=== PATIENT | female | born 1975 | race Caucasian/White ===

== ENCOUNTER 2020-12-04 05:16 | Inpatient (IN) | payer OTHER ==
[~2020-12-04] VITALS: Ht 149.9 cm; Wt 59.0 kg
[2020-12-06] MEDS ORDERED: MEDROXYPROGESTE10 MG (16:26)
[2020-12-07] MEDS ORDERED: HEMATRON PO (08:07)
[2020-12-07] MEDS ORDERED: SPRINTEC 28 DA1 EACH PO (08:07)
== END 2020-12-07 14:26 | disposition home or self-care (01) | DRG 812 ==
LOC: ER 05:16 → OB/GYN 13:50
PROVIDERS: ADMIT Obstetrics & Gynecology; ATTEND Obstetrics & Gynecology
PROC: 30233N1 Transfusion of Nonautologous Red Blood Cells into Peripheral Vein, Percutaneous Approach (ICD-10-PCS; principal; 2020-12-04)
PROC: BU4CZZZ Ultrasonography of Uterus and Ovaries (ICD-10-PCS; 2020-12-04)
DX: D64.9 Anemia, unspecified (principal); N93.9 Abnormal uterine and vaginal bleeding, unspecified; D25.9 Leiomyoma of uterus, unspecified

== ENCOUNTER 2021-01-04 19:06 | Emergency (ER) | payer OTHER ==
[~2021-01-04] VITALS: Ht 121.9 cm; Wt 59.0 kg
[~2021-01-04 19:06] MED LIST: HEMATRON PO; MEDROXYPROGESTE10 MG; SPRINTEC 28 DA1 EACH PO
== END 2021-01-05 00:17 | disposition home or self-care (01) ==
LOC: ER 19:06
DX: N93.8 Other specified abnormal uterine and vaginal bleeding (principal)

== ENCOUNTER 2021-01-09 00:59 | Emergency (ER) | payer OTHER ==
[~2021-01-09] VITALS: Ht 149.9 cm; Wt 59.0 kg
== END 2021-01-09 06:55 | disposition home or self-care (01) ==
LOC: ER 00:59
DX: N93.8 Other specified abnormal uterine and vaginal bleeding (principal)

== ENCOUNTER 2021-02-06 08:15 | Inpatient (IN) | payer OTHER ==
[~2021-02-06] VITALS: Ht 149.9 cm; Wt 57.6 kg
[2021-02-06] MEDS ORDERED: IRON236 MG PO (10:00)
[2021-02-14] MEDS ORDERED: NAPR500T14 PO (08:35)
[2021-02-14] MEDS ORDERED: Tylenol #3 PO (08:35)
== END 2021-02-14 11:12 | disposition home or self-care (01) | DRG 742 ==
LOC: O/R 02-13 06:10 → SURH 02-13 08:15 → OB/GYN 02-13 10:13 → SURH 02-13 14:00 → OB/GYN 02-14 11:12
PROVIDERS: ADMIT Obstetrics & Gynecology; ATTEND Obstetrics & Gynecology
PROC: 0UB70ZZ Excision of Bilateral Fallopian Tubes, Open Approach (ICD-10-PCS; 2021-02-13)
PROC: 0UB20ZZ Excision of Bilateral Ovaries, Open Approach (ICD-10-PCS; 2021-02-13)
PROC: 0UQF0ZZ Repair Cul-de-sac, Open Approach (ICD-10-PCS; 2021-02-13)
PROC: 0USG0ZZ Reposition Vagina, Open Approach (ICD-10-PCS; 2021-02-13)
PROC: 0UT90ZZ Resection of Uterus, Open Approach (ICD-10-PCS; principal; 2021-02-13 14:00)
DX: N92.0 Excessive and frequent menstruation with regular cycle (principal); D62 Acute posthemorrhagic anemia; N81.11 Cystocele, midline; D25.1 Intramural leiomyoma of uterus; N72 Inflammatory disease of cervix uteri; N83.8 Other noninflammatory disorders of ovary, fallopian tube and broad ligament

== ENCOUNTER 2021-03-15 01:48 | Inpatient (IN) | payer OTHER ==
[~2021-03-15] VITALS: Ht 149.9 cm; Wt 56.2 kg
[~2021-03-15 01:48] MED LIST changes: +IRON236 MG PO; +NAPR500T14 PO; +Tylenol #3 PO
[2021-03-19] MEDS ORDERED: PROTONIX40 MG PO (08:16)
[2021-03-19] MEDS ORDERED: CIPRO500 MG PO (08:16)
[2021-03-19] MEDS ORDERED: ULTRACET PO (08:16)
== END 2021-03-19 10:10 | disposition home or self-care (01) | DRG 343 ==
LOC: ER 01:48 → SEC-K 09:02 → SURG 09:02
PROVIDERS: ADMIT Surgery; ATTEND Surgery
PROC: 0DTJ0ZZ Resection of Appendix, Open Approach (ICD-10-PCS; principal; 2021-03-15)
DX: K35.890 Other acute appendicitis without perforation or gangrene (principal); Z20.822 Contact with and (suspected) exposure to COVID-19

== ENCOUNTER 2021-04-05 09:19 | Emergency (ER) | payer OTHER ==
[~2021-04-05] VITALS: Ht 149.9 cm; Wt 53.5 kg
[~2021-04-05 09:19] MED LIST changes: +CIPRO500 MG PO; +PROTONIX40 MG PO; +ULTRACET PO
== END 2021-04-05 11:31 | disposition home or self-care (01) ==
LOC: ER 09:19
DX: K29.00 Acute gastritis without bleeding (principal)

== ENCOUNTER 2021-05-19 10:31 | Emergency (ER) | payer OTHER ==
[~2021-05-19] VITALS: Ht 147.3 cm; Wt 56.2 kg
== END 2021-05-19 14:01 | disposition home or self-care (01) ==
LOC: ER 10:31
DX: M54.2 Cervicalgia (principal); M54.59 Other low back pain

== ENCOUNTER 2023-06-02 16:28 | Emergency (ER) | payer OTHER ==
[~2023-06-02] VITALS: Ht 149.9 cm; Wt 59.0 kg
[~2023-06-02 16:28] MED LIST changes: +AMOX-CLAV 875-1 EAC1 PO; +COLACE100 MG PO; +GABAPENTIN100 M2 PO; +PROBIOTIC & AC1 EACH PO
[2023-06-02 18:43] LABS: HEMATOCRIT 39.4 % (36.0-45.00); HEMOGLOBIN 13.3 g/dL (12.0-15.00); MEAN CELL VOLUME 84.8 fL (80.00-100.00); MEAN CORPUSCULAR HEMOGLOBIN 28.5 pg (27.00-32.0); MEAN CORPUSCULAR HGB CONC 33.6 g/dl (32.0-36.0); PLATELET COUNT 205 K/uL (150-450); RED BLOOD COUNT 4.65 M/uL (4.00-6.00)
== END 2023-06-02 21:56 | disposition home or self-care (01) ==
LOC: ER 16:28
PROVIDERS: General Practice
DX: R20.2 Paresthesia of skin (principal); Z20.822 Contact with and (suspected) exposure to COVID-19

== ENCOUNTER 2023-07-14 11:53 | Inpatient (IN) | payer OTHER ==
[~2023-07-14] VITALS: Ht 121.9 cm; Wt 125.6 kg
[2023-07-14] MEDS ORDERED: METAMUCIL FIBE3.4 GM PO (12:58)
[2023-07-14 13:56] LABS: HEMATOCRIT 41.6 % (36.0-45.00); MEAN CELL VOLUME 84.5 fL (80.00-100.00); MEAN CORPUSCULAR HEMOGLOBIN 28.5 pg (27.00-32.0); MEAN CORPUSCULAR HGB CONC 33.7 g/dl (32.0-36.0); PLATELET COUNT 235 K/uL (150-450); RED BLOOD COUNT 4.92 M/uL (4.00-6.00); RED CELL DISTRIBUTION WIDTH 13.7 % (11.5-14.5)
[2023-07-14 14:17] LABS: URINE APPEARANCE Clear; URINE BILIRRUBIN Negative (NEGATIVE); URINE BLOOD Negative; URINE COLOR Yellow; URINE GLUCOSE Negative (NEGATIVE); URINE LEUKOCYTE Small; URINE NITRATE Negative; URINE PROTEIN Negative (NEGATIVE); URINE UROBILINOGEN 0.2 E.U./dl
[2023-07-14 14:20] LABS: URINE BACTERIA 152.4 uL (0.0-1933); URINE EPITHELIAL CELLS 10.9 uL (0.0-38.8); URINE RBC 2.5 uL (0.0-20.8); URINE WBC 30.4 uL (0.0-23.2)
[2023-07-14 14:22] LABS: BILIRUBIN TOTAL 0.55 mg/dL (0.3-1.2); BILIRUBIN,CONJUGATED 0.15 mg/dL (0.0-0.2); BILIRUBIN,UNCONJUGATED 0.4 mg/dL (0.0-0.6); CALCIUM 9.5 mg/dL (8.5-10.1); CREATININE SERUM 0.65 mg/dL (0.55-1.02); GFR 96.88; POTASSIUM 3.78 mEq/L (3.5-5.1); TOTAL PROTEIN 8.5 gm/dL (6.4-8.2)
[2023-07-14 19:51] LABS: INR 1.03; PARTIAL THROMBOPLASTIN TIME 32.9 SECONDS (22.0-34.0); PROTHROMBIN TIME 10.8 SECONDS (9.0-11.5)
[2023-07-15 12:08] LABS: CALCIUM 8.4 mg/dL (8.5-10.1); CHOL HDL RATIO 1.8 (0-5.0); CREATININE SERUM 0.58 mg/dL (0.55-1.02); GFR 110.49; POTASSIUM 3.75 mEq/L (3.5-5.1)
[2023-07-18 08:55] LABS: HEMATOCRIT 36.2 % (36.0-45.00); MEAN CELL VOLUME 83.2 fL (80.00-100.00); MEAN CORPUSCULAR HGB CONC 34.4 g/dl (32.0-36.0); PLATELET COUNT 156 K/uL (150-450); RED BLOOD COUNT 4.35 M/uL (4.00-6.00); RED CELL DISTRIBUTION WIDTH 13.3 % (11.5-14.5)
[2023-07-18 08:56] LABS: ALBUMIN 3.3 gm/dL (3.4-5.0); BILIRUBIN TOTAL 0.5 mg/dL (0.3-1.2); CALCIUM 8.4 mg/dL (8.5-10.1); CREATININE SERUM 0.57 mg/dL (0.55-1.02); GFR 112.73; GLOBULINA 3.5 G/DL (2.4-3.5); MAGNESIUM 1.7 mg/dL (1.8-2.4); PHOSPHOROUS 2.4 mg/dL (2.5-4.9); POTASSIUM 3.41 mEq/L (3.5-5.1); TOTAL PROTEIN 6.8 gm/dL (6.4-8.2)
[2023-07-18 09:28] LABS: HEMOGLOBIN 12.5 g/dL (12.0-15.00); MEAN CORPUSCULAR HEMOGLOBIN 28.7 pg (27.00-32.0)
[2023-07-20 07:20] LABS: HEMATOCRIT 39.4 % (36.0-45.00); HEMOGLOBIN 13.5 g/dL (12.0-15.00); MEAN CELL VOLUME 84.3 fL (80.00-100.00); MEAN CORPUSCULAR HEMOGLOBIN 28.9 pg (27.00-32.0); MEAN CORPUSCULAR HGB CONC 34.3 g/dl (32.0-36.0); RED BLOOD COUNT 4.67 M/uL (4.00-6.00); RED CELL DISTRIBUTION WIDTH 13.4 % (11.5-14.5)
[2023-07-20 07:42] LABS: PLATELET COUNT 118 K/uL (150-450)
[2023-07-20 08:30] LABS: BILIRUBIN TOTAL 0.46 mg/dL (0.3-1.2); CALCIUM 8.7 mg/dL (8.5-10.1); CREATININE SERUM 0.59 mg/dL (0.55-1.02); GFR 108.33; GLOBULINA 3.7 G/DL (2.4-3.5); MAGNESIUM 2.1 mg/dL (1.8-2.4); PHOSPHOROUS 3.7 mg/dL (2.5-4.9); POTASSIUM 4.52 mEq/L (3.5-5.1); TOTAL PROTEIN 6.7 gm/dL (6.4-8.2)
== END 2023-07-22 14:02 | disposition home or self-care (01) | DRG 392 ==
LOC: ER 11:53 → MEDI 19:12 → MEDJ 07-17 17:25
PROVIDERS: General Practice; ADMIT Internal Medicine; ATTEND Internal Medicine
PROC: BW21YZZ Computerized Tomography (CT Scan) of Abdomen and Pelvis using Other Contrast (ICD-10-PCS; principal; 2023-07-14)
PROC: 0W9F3ZZ Drainage of Abdominal Wall, Percutaneous Approach (ICD-10-PCS; 2023-07-15)
PROC: 02HV33Z Insertion of Infusion Device into Superior Vena Cava, Percutaneous Approach (ICD-10-PCS; 2023-07-16)
PROC: BW21YZZ Computerized Tomography (CT Scan) of Abdomen and Pelvis using Other Contrast (ICD-10-PCS; 2023-07-19)
DX: K57.32 Diverticulitis of large intestine without perforation or abscess without bleeding (principal); J10.1 Influenza due to other identified influenza virus with other respiratory manifestations